=== PATIENT | male | born 2005 | race American Indian/Alaskan Native ===

== ENCOUNTER 2024-06-21 18:36 | Emergency (ER) | payer MEDICAID, OTHER ==
[2024-06-21] MEDS ORDERED: Lactated Ringers 1,000 ML IV SCH (19:15)
[2024-06-21] MEDS: Iopamidol 612 MG/ML 100 ML Bottle IVPUSH ONE (20:21)
[2024-06-21] MEDS: Take Home: Amoxicillin 500 MG, 6 Cap Pack PO ONE (21:45)
== END 2024-06-21 21:53 | disposition home or self-care (01) ==
LOC: DL.ED 18:36
DX: F10.129 Alcohol abuse with intoxication, unspecified (principal); Y90.9 Presence of alcohol in blood, level not specified; V89.2XXA Person injured in unspecified motor-vehicle accident, traffic, initial encounter
CPT/HCPCS: 70450; 71260; 72125; 74177; 96360; 99284; 99284-25; A9270-GY; Q9967